=== PATIENT | female | born 1995 | race Caucasian/White ===

== ENCOUNTER 2017-05-27 23:10 | Emergency (ER) | payer OTHER ==
[~2017-05-27] VITALS: Ht 165.1 cm; Wt 68.6 kg
[2017-05-27 23:13] VITALS: TEMP 37.8; Ht 165.1 cm; Wt 68.6 kg
[2017-05-27] MEDS ORDERED: ACETAMINOPHEN 500 MG TAB PO STA (23:18)
[2017-05-27] MEDS ORDERED: IBUPROFEN 600 MG TAB PO STA (23:24)
[2017-05-27] MEDS ORDERED: LIDOCAINE HCL 2% VISC SOLN 20 ML UDC MT STA (23:24)
[2017-05-27] MEDS ORDERED: ACET-749 PO (23:29)
[2017-05-27] MEDS ORDERED: ETONMIS VAGRING (23:29)
[2017-05-27] MEDS ORDERED: DEXAMETHASONE SOD INJ 10 MG/ML VIAL PO ONE (23:30)
[2017-05-28] MEDS ORDERED: LIDO2SOL19 PO (00:52)
[2017-05-28 01:00] VITALS: BP 115/72; PULSE 78; O2SAT 98
--- NOTE | 2017-05-28 05:59 | EMERGENCY ROOM VISIT NOTE ---
History First contact with patient: 23:18 Chief Complaint: SORETHROAT Stated Complaint: SORETHROAT,FEVER,EXHAUSTION History of Present Illness The patient is a 22 year old female who presents to the Emergency Room with complaints of sore throat and fatigue for the past 3 weeks with intermittent fevers. Patient is concerned she might have mono. She had a negative strep test last week with urgent care. Patient denies chest pain, dyspnea, neck stiffness, abdominal pain, vomiting, diarrhea. She is tolerating fluids. Review of Systems See HPI for pertinent positives & negatives. A total of 10 systems reviewed and were otherwise negative. Past Medical/Surgical History none Social History Smoking Status: Never Smoker Smokeless Tobacco Use: No Drug Use: none Occupation Status: [employer] student Current/Historical Medications Scheduled Etonogestrel/Ethinyl Estradiol (Nuvaring), 1 EA VAGRING MONTHLY Lidocaine Hcl (Mouth-Throat) (Lidocaine Viscous), 5 ML PO TID Scheduled PRN Acetaminophen/Codeine (Tylenol W/Codeine #3), 1 TAB PO Q6H PRN for Pain Physical Exam Vital Signs Date Time Temp Pulse Resp B/P (MAP) Pulse Ox O2 Delivery O2 Flow Rate FiO2 05/28/17 01:00 78 18 115/72 98 05/27/17 23:13 99 Room Air 05/27/17 23:13 37.8 106 18 121/81 98 Room Air Pain Rating (0-10): 4.0 Physical Exam VITALS: Vitals are noted on the nurse's note and reviewed by myself. Vital signs low-grade fever. GENERAL: Pleasant female, in no acute distress, nondiaphoretic, well-developed well-nourished. SKIN: The skin was without rashes, erythema, edema, or bruising. There is no tenting of the skin. Capillary reflex less than 2 seconds. HEAD: Normocephalic atraumatic. EARS: External auditory canals clear, tympanic membranes pearly ca without erythema or effusion bilaterally. EYES: Pupils equal round and reactive to light and accommodation. Conjunctivae without injection, sclerae without icterus. Extraocular movements intact. NOSE: Patent, turbinates without inflammation or discharge. No sinus tenderness. MOUTH: Mucous membranes moist. Tonsils are not enlarged. Pharynx with erythema without exudate. Uvula midline. Airway patent. Tongue does not deviate. NECK: Supple without nuchal rigidity. Shoddy anterior cervical lymphadenopathy. No thyromegaly. Cervical spine is nontender. No JVD. No meningeal signs HEART: Regular rate and rhythm without murmurs gallops or rubs. LUNGS: Clear to auscultation bilaterally without wheezes, rales or rhonchi. No dullness to percussion. No retractions or accessory muscle use. ABDOMEN: Positive bowel sounds x 4. Normal tympanic percussion. Soft, nontender, without masses or organomegaly. Anthony sign negative. No guarding or rebound tenderness. MUSCULOSKELETAL: No muscle atrophy, erythema, or edema noted. NEURO: Patient was alert and oriented to person place and time. Normal sensation to light and sharp touch. No focal neurological deficits. Medical Decision & Procedures Laboratory Results Test 05/27/17 23:55 Monoscreen POS (NEG) Medications Administered Medications (Trade) Dose Ordered Sig/Raj Route Start Time Stop Time Status Last Admin Dose Admin Ibuprofen (Motrin Tab) 600 mg NOW STAT PO 05/27/17 23:24 05/27/17 23:26 DC 05/27/17 23:55 600 MG Lidocaine HCl (Viscous Lidocaine 2% Soln) 10 ml NOW STAT MT 05/27/17 23:24 05/27/17 23:26 DC 05/27/17 23:55 10 ML Dexamethasone Sodium Phosphate (Decadron Inj) 10 mg NOW ONCE PO 05/27/17 23:30 05/27/17 23:31 DC 05/27/17 23:54 10 MG ED Course Prior records/ancillary studies reviewed. Triage Nursing notes reviewed. Additional history obtained from friend. The patient's history was concerning for a sore throat. Differential diagnosis: Etiologies such as viral syndrome, tonsillitis, streptococcal pharyngitis, mononucleosis, peritonsillar abscess, retropharyngeal abscess, otitis, pneumonia , influenza, as well as others were entertained. ER treatment provided: Viscous lidocaine, Decadron On reassessment the patient felt better. Diagnostics interpreted by me: The labs revealed mono, negative strep test This appears to be consistent with mononucleosis. Patient was counseled on mono and advise no sports or strenuous activities for the month and do not resume this until cleared by health services. She is advised this is highly contagious. She is advised not to share drinks or saliva. She is advised follow-up health services in a few days or here in the ER sooner for abdominal pain, fevers, neck stiffness, worsening signs or symptoms or as needed. Patient no signs of meningitis. She is well-appearing. She did not have an acute abdomen on exam. By the evaluation outlined above emergent etiologies such as peritonsillar abscess, retropharyngeal abscess, otitis, pneumonia, meningitis, urinary tract infection, sepsis, bacteremia, as well as others were deemed relatively unlikely. The pt informed about the findings as listed above. All questions were answered and pleased with the treatment. Return instructions were outlined and the patient was discharged in stable condition. Case reviewed with my attending Referral: The patient was referred back to their primary care physician for follow-up in 2 to 3 days for a recheck of the current condition. 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 IMPORTANT VISIT INFORMATION Patient Instructions Mononucleosis, My [facility] Additional Instructions No sports or strenuous activity until cleared by health services. If you develop abdominal pain then you need to come to the ER immediately. This virus is highly contagious. Recommend do not share drinks or spit with anybody. Acetaminophen(Tylenol) may be used for fever or pain. Use 1000mg every six hours as needed. Avoid using more than 3000mg in a 24 hour period. (AND/OR) Ibuprofen(Motrin, Advil) may be used for fever or pain. Use 600mg every six hours as needed. Take with food. Avoid using more than 2400mg in a 24 hour period. Do not use 2400mg per day for more than three consecutive days without physician direction. Prolonged inappropriate use can lead to stomach upset or ulcers. Afrin nasal spray: 2-3 sprays to each nostril twice daily as needed for congestion. Do not use for more than 3-4 days because it can lead to worsening rebound congestion. Pseudoephedrine(Sudaphed): 30-60mg every 6 hours as needed for nasal congestion. Do not take this with other stimulant products or supplements. Rest and drink plenty of fluids. Controlling your fever with Tylenol and Ibuprofen as above will make you feel better. Wash your hands after nose blowing, sneezing, or coughing. Most germs are spread through contact, therefore improper hygiene may result in your close contacts and loved ones becoming ill just like you. Continue current medications. Return to the ER for severe headache, neck stiffness, chest pain, difficulty breathing, fevers, vomiting, worsening of your condition, or as needed. Follow up with your primary physician this week for a recheck of your current condition. 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
== END 2017-05-28 01:00 | disposition home or self-care (01) ==
LOC: C.EDB 23:12 → C.EDD 05-28 01:00
DX: B27.90 Infectious mononucleosis, unspecified without complication (principal)